=== PATIENT | female | born 2000 | race Caucasian/White ===

== ENCOUNTER → 2025-03-31 | Outpatient (REF) | payer OTHER | LOC: M PLALAB 15:02 | PROVIDERS: ATTEND Nurse Practitioner Family | DX: Z34.80 Encounter for supervision of other normal pregnancy, unspecified trimester (principal); Z53.9 Procedure and treatment not carried out, unspecified reason ==

== ENCOUNTER → 2025-03-31 | Outpatient (CLI) | payer OTHER ==
[2025-03-31 17:36] LABS: PLATELET COUNT, AUTOMATED 373 10^3/uL (150-450)
[2025-03-31 18:07] LABS: HIV 1&2 SCREEN NEGATIVE (NEGATIVE)
[2025-03-31 18:14] LABS: HEPATITIS C VIRUS ABY INDEX 0.07 INDEX (<0.8)
[2025-03-31 19:56] LABS: Trichomonas vaginalis (AMP) NOT DETECTED (NEGATIVE)
[2025-03-31 20:19] LABS: GC DNA AMPLIFICATION NEGATIVE (NEGATIVE)
== END ==
LOC: M PLALAB 15:22
PROVIDERS: ATTEND Nurse Practitioner Family
DX: Z34.80 Encounter for supervision of other normal pregnancy, unspecified trimester (principal)